=== PATIENT | female | born 1970 | race Caucasian/White ===

== ENCOUNTER 2021-12-24 08:57 | Outpatient (RCR) | payer OTHER, SELFPAY ==
--- OUTSIDE RECORDS SUMMARY | 2021-12-18 09:27 | XMS_ITS | Continuity of Care Document ---
:1970 Author Care Team Providers Name Role Phone SEEN Primary Care Physician Unavailable MD Sammi Attending Physician Unavailable Chief Complaint and Reason for Visit Chief Complaint BILATERAL MASTECTOMY 06/04/21 SHIMA Allergies, Adverse Reactions, Alerts No known allergies Social History Smoking Status Status Start Date End Date Date of Observat ion Never smoked tobacco June 172020 (finding) 3:47pm Observation Status Observation Response Date of Response Health care directive on file May 272020 11:06am History provided by Patient June 03, 2021 8 :37am Where do you live? Own home/apt June 03, 2021 8 :37am With whom do you live? Adult children June 03 8:37am Additional Data Assigned Sex Female Problems Active Problems Medical Problem Onset Date Status Menorrhagia with regular cycle Active Breast cancer 2020 Active Hx of vein stripping Active S/P tubal ligation Active S/P bilateral mastectomy Active Medications Medication Status Dose Units Route Directions Qty Days Start End Ins tructions Date Date Acetaminophen Active 2 TAB PO Every 6 100 /Aspirin/Caff Hours as eine needed (Excedrin Migraine 250-250-65 Mg) 1 Tab TAB Anastrozole Active 1 MG PO Daily August to be s tarted (Arimidex) 1 1st, 2 weeks after Mg TAB 2021 zoladex shot. 3:03pm Calcium Active 1 TAB PO Twice Daily August Carbonate-Vit With Meals , 2021 (Calcium + D3 3:03pm 600-200 Mg-Unit) 1 Tab TAB Magnesium Active 800 MG PO Daily October 3:30pm Melatonin Active 10 MG PO Bedtime as 100 needed Multiple Active 1 EA PO Daily Vitamin (Multi-Vitami n) TAB Naproxen Active 220 MG OR as needed Sodium (Aleve) 220 Mg CAP Oxybutynin Active 5 MG PO Twice A Day 60 23 November Chloride 4th, (Oxybutynin 2021 Chloride Er) 3:30pm 5 Mg TABCR Abemaciclib Discontin 150 MG PO Twice A Day 60 23 September Apri l (Verzenio) ued 1st, 6th, 150 Mg TAB 2021 2021 3:03pm 2:48pm Albuterol Discontin 2 PUFF INH Every 4 1 Novembe September Sulfate ued Hours as r 4th, 10th, (Proair Hfa) needed 2014 2017 90 Mcg/Puff 11:15am 3:31pm INH Albuterol Discontin 2.5 MG NEB Once 1 Novembe Novemb Sulfate ued r 3rd, er (Albuterol 2014 08, Neb) 2.5 Mg/3 4:12pm 2015 Ml NEB 4:26pm Aspirin Discontin 81 MG PO 2-3 Times Septem ued Daily viola 2009 2:45pm Azithromycin Discontin 250-5 MG PO As Directed 6 Novembe A pril 500 MG ON DAY (Zithromax ued 00 r 3rd, 3rd, 1 THEN 2 50 MG Z-Dereck) 250 Mg 2014 2017 DAILY X 4 TAB 4:12pm 2:31pm MORE DAYS Azithromycin Discontin 500 MG PO Daily October (Zithromax) ued 14, , 500 Mg TAB 2007 2008 3:29pm 3:10pm Covid-19 Discontin 100 MCG IM Once June (Sars-Cov-2) ued 18, y Mrna Vir 2021 18, (Moderna 2:48pm 2021 Covid-19 2:50pm Vaccine) 100 Mcg/0.5 Ml INJ Diphenhydrami Discontin 2 TBS PO Bedtime as October ne-Phenylephr ued needed , ine- (Cold & 2012 Flu Intense 1:55pm Streng) Intense TAB Diphenhydrami Discontin 2 TAB PO Daily as October AFTERNOON ne-Phenylephr ued needed 29, ine- (Cold & 2011 Flu Intense 1:55pm Streng) Intense TAB Guaifenesin/C Discontin 5 ML PO Every 6 120 Novembe Apri l odeine ued Hours r 3rd, 3rd, Phosphate 2014 2017 (Guaifenesin- 4:12pm 2:31pm Codeine) 100 Mg/10 Mg/5 Ml SOLN Guaifenesin/C Discontin 1 - 2 TSP PO Q4h Prn 120 October odeine ued 14, 11th, Phosphate 2007 2008 (Guaifenesin- 3:28pm 3:10pm Codeine) 100 Mg/10 Mg/5 Ml SOLN Loratadine Discontin 10 MG PO Daily 30 Decemb (Claritin) 10 ued er Mg TAB 2020 9:29am Lorazepam Discontin 0.5-1 MG PO Every 4 November Decemb PRN ued Hours as 1st, er Nausea/vomi ti needed for 2020, ng Nausea/Vomi 3:33pm 2020 ting 9:29am Magnesium Discontin 800 MG PO Daily 100 May Oxide ued 2021 3:30pm Magnesium Discontin 400 MG PO Daily 100 Septemb Octobe Oxide ued er r 6th, 2020 10:09a 11:04am m Magnesium Discontin 400 MG PO Daily 100 Septem Oxide ued viola 2020 8:06am Melatonin Discontin 10 MG PO Bedtime as 100 Decemb ued needed er 2020 10:07a m [place]-3 Fatty Discontin 1000 MG OR Daily Dayanara Acids ([place] ued , ) 1,000 Mg 2020 CAP 2:55pm Oxycodone Hcl Discontin 5-10 MG PO Every 4 30 Decembe Dece mb ued Hours as r 10th, er needed 2020, 6:02pm 2020 2:00pm Oxycodone Hcl Discontin 5-10 MG PO Every 4 20 Decembe Dece mb ued Hours as r 10th, er needed 2020, 10:31am 2020 9:29am Phenylephrine Discontin 20 ML PO Daily as October -Acetaminophe ued needed , n-Gu (Mucinex 2011 Fast-Max Cold 1:55pm & S) Sinus LIQ Prochlorperaz Discontin 10 MG PO Every 8-12 November emb PRN ine Maleate ued Hours as 1st, er Nause a/vomiti needed for 2020, ng Nausea/Vomi 3:33pm 2020 ting 9:29am Sennosides Discontin 8.6 MG PO Daily 100 Decembe Decemb (Senna) 8.6 ued r 10th, er Mg CAP 2020, 10:30am 2020 2:00pm Tamoxifen Discontin 20 MG PO Daily 30 Decemb Citrate ued er 2020 10:31a m Tamoxifen Discontin 20 MG PO Daily March Decemb Thong e Citrate ued , er 05/06/2021 t o 2020 11, 05/26/2021 10:31am 2020 2:53pm Immunizations Immunization Event Date Not Given Dose Ict Account Manager Lot Vac cine Reason Number Number Informatio n Statement (VIS) Deta il COVID-19 Moderna June 27 [id number] Tetanus/Diptheri October 10, a 1996 Tdap July 28 (adolescent/adul 2006 t) Tdap July 29 (adolescent/adul 2006 t) Medical Equipment Device Date Implanted Date Explanted Device Details PowerPort M.R.I. December 09, 2020 BRIAN: [id number] Implantable Port Issuing Agency: [facility] Device Id: [id number] Expiration Date: 2022-03-26 Lot Number: [id number] PowerPort M.R.I. December 09, 2020 June 04, 2021 BRIAN: [id number] Implantable Port Issuing Agency: [facility] Device Id: [id number] Expiration Date: 2022-03-26 Lot Number: [id number] 1982 Relevant Diagnostic Tests and/or Laboratory Data Laboratory Results Test Date/Time Result Interpretation Reference Result Perfo rming Range Comment Site Creatinine November 25, 0.7 0.5-1.5 [facility] 2021 2:41pm [address] [facility] [address] Advance Directives Advance Directive Response Recorded Date/Time Does Pt have Health Care N - Given today May 05, 12:26pm Directive? Has patient completed a Yes June 17 3:47pm Health Care Directive? Insurance Providers Guarantor Brittny Jensen Address [address] [place] [id number] Contact Info. Home Phone: Payer Policy Id Coverage Id Subscriber's Subscriber Id Effective E xpiration Name Date Date [facility] [id number] Brittny Jensen [id number] 2020 Choice Encounters Encounter Location(s) Arrival/Admit Date Discharge/Depart Date Provider(s) Registered [place] December 03, 2021 Sandy Chang [facility] 2:59pm Registered [place] November 26, 2021 Britt Chapa [facility] 7:04am Functional Status Observation Response Date Recorded Functional Status Independent June 05, 2021 12:44pm Mental Status Observation Response Date Recorded Cognitive Status Alert June 03, 2021 8 :29am Oriented June 03, 2021 8 :29am Plan of Treatment Future Tests Future scheduled test information is unavailable Pending Tests Pending diagnostic test information is unavailable Future Visits Future appointment information is unavailable Referrals to Other Providers Referral information is unavailable Future Procedures Future procedure information is unavailable Future Medications Future medication information is unavailable Patient Instructions Oxycodone, Rapid Release (By mouth) Senna (By mouth) (Senna, Senna-lax) Mastectomy (DC) Dexamethasone (By injection) (Cortastat, Cortastat 10, Dexasone... Pegfilgrastim (By injection) Palonosetron (By injection) (Aloxi) Fosaprepitant (By injection) (Emend)
--- OUTSIDE RECORDS SUMMARY | 2021-12-18 10:16 | XMS_ITS | Continuity of Care Document ---
[...] Decemb ued needed er 2020 10:07a m [place]-3 Fatty Discontin 1000 MG OR Daily Dayanara Acids ([place] ued , ) 1,000 Mg 2020 CAP [...] Immunizations Immunization Event Date Not Given Dose Pharmacogeneticist Lot Vac cine Reason Number Number Informatio n Statement (VIS) Deta il COVID-19 Moderna June 27 MODERNA [id number] 2021 Tetanus/Diptheri October 10, a 1996 Tdap July 28 (adolescent/adul 2006 t) Tdap July 29 (adolescent/adul 2006 t) Medical Equipment Device Date Implanted Date Explanted Device Details PowerPort M.R.I. December 09, 2020 BRIAN: [id number] Implantable Port Issuing Agency: [facility] Device Id: [id number] Expiration Date: 2022-03-26 Lot Number: [id number] 1982 PowerPort M.R.I. December 09, 2020 June 04, 2021 BRIAN: [id number] Implantable Port Issuing Agency: [facility] Device Id: [id number] Expiration Date: 2022-03-26 Lot Number: [id number] 1982 Relevant Diagnostic Tests and/or Laboratory Data Laboratory Results Test Date/Time Result Interpretation Reference Result Perfo rming Range Comment Site Creatinine November 25, 0.7 0.5-1.5 [facility] 2021 2:41pm [address] [facility] [address] Advance Directives Advance Directive Response Recorded Date/Time Does Pt have Health Care N - Given today May 05, 12:26pm Directive? Has patient completed a Yes June 17 3:47pm Health Care Directive? Insurance Providers Guarantor Brittny Jensen Address [address] [place] [id number] Contact Info. Home Phone: Payer Policy Id Coverage Id Subscriber's Subscriber Id Effective E xpiration Name Date Date [facility] [id number] Brittny Jensen [id number] 2020 Choice Encounters Encounter Location(s) Arrival/Admit Date Discharge/Depart Date Provider(s) Registered [place] December 03, 2021 Sandy Chang [facility] 2:59pm Registered [place] November 26, 2021 Britt Chapa [facility] 7:04am Functional Status Observation Response Date Recorded [...]
[2021-12-24 09:29] VITALS: BP 126/84; PULSE 60; RESP 14; TEMP 36.1; O2SAT 99
[2021-12-24] MEDS: GOSERELIN ACETATE 3.6 MG IMPLANT SUBCUT (09:38)
[2021-12-24 09:53] LABS: Creatinine* 0.7 mg/dL (0.5-1.5); Est. Creatinine Clearance* 85.56; Estimated Glomerular Filt Rate 104.65
== END 2021-12-24 23:59 | disposition home or self-care (01) ==
LOC: CCIC 08:57
PROVIDERS: Visit Provider Internal Medicine Hematology & Oncology
DX: C50.912 Malignant neoplasm of unspecified site of left female breast (principal); Z17.0 Estrogen receptor positive status [ER+]
CPT/HCPCS: 36415; 82565; J9202

== ENCOUNTER 2022-01-21 14:30 | Outpatient (RCR) | payer OTHER, SELFPAY ==
--- NOTE | 2022-01-18 15:12 | ONC.NURNOTE ---
Authorization: User: Ada Morin Date: 08/26/21 08:35 Type: Eligibility Determination Note... Request received from [facility] for prior authorization of Goserelin J9202. Patient carries [employer] as primary insurance. Per Negin at [facility] no prior authorization is required for Goserelin. Services are based on medical necessity. Call Ref #[id number] User: Ada Morin Date: 11/19/21 14:09 Type: Eligibility Determination Note... Request received from [facility] for prior authorization of Zoledronic Acid J3489. Patient carries [employer] as primary insurance. Santos Sawyer at [facility] no prior authorization is required for Zoledronic Acid. Call Ref #[id number]
[2022-01-20 15:25] LABS: Creatinine* 0.9 mg/dL (0.5-1.5); Estimated Glomerular Filt Rate 77 ml/min
[2022-01-21 14:55] VITALS: BP 131/71; PULSE 68; RESP 16; TEMP 36.4; O2SAT 98
[2022-01-21] MEDS: GOSERELIN ACETATE 3.6 MG IMPLANT SUBCUT (15:08)
== END 2022-01-24 23:59 | disposition home or self-care (01) ==
LOC: CCIC 14:30
PROVIDERS: Visit Provider Internal Medicine Hematology & Oncology
DX: C50.912 Malignant neoplasm of unspecified site of left female breast (principal); Z17.0 Estrogen receptor positive status [ER+]; Z79.811 Long term (current) use of aromatase inhibitors
CPT/HCPCS: 36415; 82565; 96401; 99212; 99213; 99214; J9202

== ENCOUNTER 2022-02-05 09:25 | Outpatient (RCR) | payer OTHER, SELFPAY | END 2023-01-12 11:05 | disposition home or self-care (01) | PROVIDERS: Visit Provider Surgery | DX: I89.0 Lymphedema, not elsewhere classified (principal); Z51.89 Encounter for other specified aftercare | CPT/HCPCS: 97530 ==

== ENCOUNTER 2022-08-12 15:00 | Outpatient (RCR) | payer OTHER, SELFPAY ==
[2022-02-18 14:13] VITALS: BP 117/79; PULSE 84; RESP 16; TEMP 36.4; O2SAT 96
[2022-02-18] MEDS: GOSERELIN ACETATE 3.6 MG IMPLANT SUBCUT (14:30)
[2022-03-18 14:38] VITALS: BP 105/74; PULSE 79; RESP 16; TEMP 36.5; O2SAT 96
[2022-03-18] MEDS: GOSERELIN ACETATE 3.6 MG IMPLANT SUBCUT (15:09)
[2022-04-15 09:00] VITALS: BP 126/74; PULSE 74; RESP 16; TEMP 36.1; O2SAT 97
[2022-04-15] MEDS: GOSERELIN ACETATE 3.6 MG IMPLANT SUBCUT (09:40)
[2022-05-13] MEDS: GOSERELIN ACETATE 3.6 MG IMPLANT SUBCUT (14:56)
--- NOTE | 2022-05-28 13:47 | ONC.NURNOTE ---
Addendum entered by Ghazala Morales RN 07/05/22 10:59: Pt to see Dr. Pavon 07/26/22 @ 1000; confirmed with Rhonda at Dr. Pavon's office. Original Note: At the request of the patient, a referral was faxed to Dr. Pavon, for discussion of removal of excess skin at the site of her mastectomy. Patient aware that they will call her to schedule.
[2022-06-10 14:48] VITALS: BP 118/81; PULSE 75; RESP 16; TEMP 35.9; O2SAT 97
[2022-06-10 14:57] LABS: Creatinine* 0.9 mg/dL (0.5-1.5); Estimated Glomerular Filt Rate 77 ml/min
[2022-06-10 14:58] LABS: Calcium* 10.1 mg/dL (8.4-10.6)
[2022-06-10] MEDS: GOSERELIN ACETATE 3.6 MG IMPLANT SUBCUT (15:19)
[2022-06-10] MEDS: 0.9 % SODIUM CHLORIDE 250 ml IV (15:24)
[2022-06-10] MEDS: ZOLEDRONIC ACID 4 MG in 0.9 % SODIUM CHLORIDE 100 ml 100 ML 420 MG IVPB (15:24)
[2022-07-15 14:42] VITALS: BP 122/78; PULSE 71; RESP 16; TEMP 35.9; O2SAT 98
[2022-07-15] MEDS: GOSERELIN ACETATE 3.6 MG IMPLANT SUBCUT (14:52)
[2022-08-12 14:36] VITALS: BP 116/79; PULSE 94; RESP 16; TEMP 36.1; O2SAT 99
[2022-08-12] MEDS: GOSERELIN ACETATE 3.6 MG IMPLANT SUBCUT (15:16)
--- NOTE | 2022-08-12 15:46 | ONC.NURNOTE ---
Accompanied pt to appt with Twyla Bedolla CNP. Cont monthly Zoladex; 3 mo f/u sched 11/04/[address] Chpaa.
== END 2022-08-17 23:59 | disposition home or self-care (01) ==
LOC: CCIC 15:00
PROVIDERS: Internal Medicine Hematology & Oncology; Visit Provider Nurse Practitioner Family
DX: C50.912 Malignant neoplasm of unspecified site of left female breast (principal); Z17.0 Estrogen receptor positive status [ER+]; Z79.811 Long term (current) use of aromatase inhibitors; M81.0 Age-related osteoporosis without current pathological fracture
CPT/HCPCS: 36415; 82310; 82565; 96374; 96401; 99212; 99214; J3489; J7050; J9202

== ENCOUNTER 2022-11-16 13:45 | Outpatient (RCR) | payer OTHER, SELFPAY | END 2023-03-16 23:59 | disposition home or self-care (01) | PROVIDERS: PCP Registered Nurse; Visit Provider Registered Nurse | DX: H81.12 Benign paroxysmal vertigo, left ear (principal); I89.0 Lymphedema, not elsewhere classified; Z51.89 Encounter for other specified aftercare | CPT/HCPCS: 95992; 97162; 97535 ==

== ENCOUNTER 2023-02-24 14:30 | Outpatient (RCR) | payer OTHER, SELFPAY ==
--- NOTE | 2022-09-02 14:35 | URNOTE ---
Received request for prior Auth for Zoladex (J9202). Per Loi on behalf of [employer], prior authorization is not required.
[2022-09-09 14:52] VITALS: BP 125/86; PULSE 63; RESP 16; TEMP 36.4; O2SAT 99
[2022-09-09 14:57] VITALS: BP 120/80; BP 129/72
[2022-09-09] MEDS: GOSERELIN ACETATE 3.6 MG IMPLANT SUBCUT (15:04)
[2022-10-07 14:44] VITALS: BP 128/79; PULSE 73; RESP 16; TEMP 36.2; O2SAT 96
[2022-10-07] MEDS: GOSERELIN ACETATE 3.6 MG IMPLANT SUBCUT (14:47)
[2022-11-04] MEDS: GOSERELIN ACETATE 3.6 MG IMPLANT SUBCUT (15:23)
--- NOTE | 2022-11-30 13:13 | URNOTE ---
Received request for prior auth for Zoledronic Acid (J3489). Per Luis Antonio on behalf of [employer], prior auth is not required.
--- NOTE | 2022-11-30 14:52 | ONC.NURNOTE ---
Patient requested refill on both anastrozole and her calcium with vitamin D. These were filled on 11/25/2022 and 11/30/2022. Through expanse error these were transmitted to wrong pharmacy. Entry Level Lab Technician called [facility] and they will request these prescriptions be sent to them from [facility]. Needing dental clearance, as hard copy is missing. Entry Level Lab Technician reached out to [facility] at [phone] and they did not have this copy any longer, but will fill out a new one. Dental clearance form was faxed to [phone].
[2022-12-02 14:59] VITALS: BP 119/75; PULSE 89; RESP 16; TEMP 36.3; O2SAT 96
[2022-12-02] MEDS: GOSERELIN ACETATE 3.6 MG IMPLANT SUBCUT (15:06)
[2022-12-02 15:23] LABS: Creatinine* 0.7 mg/dL (0.5-1.5); Estimated Glomerular Filt Rate 104 ml/min
[2022-12-02 15:24] LABS: Calcium* 10.4 mg/dL (8.4-10.6)
[2022-12-02] MEDS: ZOLEDRONIC ACID 4 MG in 0.9 % SODIUM CHLORIDE 100 ml 100 ML 420 MG IVPB (15:45)
[2022-12-30 08:03] VITALS: BP 113/78; PULSE 64; RESP 16; TEMP 35.7; O2SAT 97
[2022-12-30] MEDS: GOSERELIN ACETATE 3.6 MG IMPLANT SUBCUT (08:17)
[2023-01-27] MEDS: GOSERELIN ACETATE 3.6 MG IMPLANT SUBCUT (14:54)
[2023-01-27 14:58] VITALS: BP 133/81; PULSE 80; RESP 16; TEMP 36.4; O2SAT 95
[2023-02-24] MEDS: GOSERELIN ACETATE 3.6 MG IMPLANT SUBCUT (15:26)
== END 2023-03-08 23:59 | disposition home or self-care (01) ==
LOC: CCIC 14:30
PROVIDERS: Internal Medicine Hematology & Oncology; Visit Provider Physician Assistant
DX: C50.912 Malignant neoplasm of unspecified site of left female breast (principal); Z17.0 Estrogen receptor positive status [ER+]; Z90.13 Acquired absence of bilateral breasts and nipples; M85.80 Other specified disorders of bone density and structure, unspecified site; Z79.811 Long term (current) use of aromatase inhibitors
CPT/HCPCS: 36415; 82310; 82565; 96374; 96401; 99212; 99214; 99215; J3489; J9202

== ENCOUNTER 2023-07-22 14:30 | Outpatient (RCR) | payer BC, OTHER, SELFPAY | END 2023-11-19 23:59 | disposition home or self-care (01) | PROVIDERS: Visit Provider Plastic Surgery | DX: Z98.890 Other specified postprocedural states (principal); Z51.89 Encounter for other specified aftercare | CPT/HCPCS: 97110; 97140; 97161; 97162 ==

== ENCOUNTER 2023-09-08 14:30 | Outpatient (RCR) | payer BC, OTHER, SELFPAY ==
[2023-03-24 14:39] VITALS: BP 120/75; PULSE 72; RESP 16; TEMP 35.8; O2SAT 97
[2023-03-24] MEDS: GOSERELIN ACETATE 3.6 MG IMPLANT SUBCUT (14:53)
--- NOTE | 2023-04-04 12:47 | ONC.NURNOTE ---
Refill request for Calcium carb faxed to [facility] pharmacy.
[2023-04-21 14:46] VITALS: BP 121/78; PULSE 59; RESP 16; TEMP 36.3; O2SAT 94
[2023-04-21] MEDS: GOSERELIN ACETATE 3.6 MG IMPLANT SUBCUT (14:49)
[2023-05-20 09:14] VITALS: BP 119/85; PULSE 68; RESP 16; TEMP 36.2; O2SAT 93
[2023-05-20] MEDS: GOSERELIN ACETATE 3.6 MG IMPLANT SUBCUT (09:39)
[2023-06-16 14:55] LABS: Calcium* 9.8 mg/dL (8.4-10.6); Creatinine* 0.8 mg/dL (0.5-1.5); Est. Creatinine Clearance* 73.18; Estimated Glomerular Filt Rate 88 ml/min
[2023-06-16] MEDS: ZOLEDRONIC ACID 4 MG in 0.9 % SODIUM CHLORIDE 100 ml 100 ML 420 MG IVPB (15:15)
[2023-06-16] MEDS: GOSERELIN ACETATE 3.6 MG IMPLANT SUBCUT (15:16)
--- NOTE | 2023-07-08 12:37 | URNOTE ---
Received request for prior authorization for Goserelin Acetate (Zoladex) (J9202). Per [facility] prior authorization is not required, Ref#[id number], date range 07/13/2023 to 07/13/2024.
[2023-07-14 14:41] VITALS: BP 127/80; PULSE 73; RESP 16; TEMP 35.7; O2SAT 98
[2023-07-14] MEDS: GOSERELIN ACETATE 3.6 MG IMPLANT SUBCUT (16:45)
[2023-08-11 14:50] VITALS: BP 114/75; PULSE 67; RESP 16; TEMP 36.4; O2SAT 94
[2023-08-11] MEDS: GOSERELIN ACETATE 3.6 MG IMPLANT SUBCUT (15:02)
[2023-09-08 14:30] VITALS: BP 134/91; PULSE 70; RESP 18; TEMP 36.6; O2SAT 97
[2023-09-08] MEDS: GOSERELIN ACETATE 3.6 MG IMPLANT SUBCUT (14:47)
--- NOTE | 2023-09-19 15:56 | ONC.NURNOTE ---
Dexa scan reviewed by Dunia Kwon PA-C. Per Dunia Kwon PA-C no change in plan of care. Pt called with results.
== END 2023-09-20 23:59 | disposition home or self-care (01) ==
LOC: CCIC 14:30
PROVIDERS: Visit Provider Physician Assistant
DX: C50.912 Malignant neoplasm of unspecified site of left female breast (principal); M85.80 Other specified disorders of bone density and structure, unspecified site; Z17.0 Estrogen receptor positive status [ER+]
CPT/HCPCS: 36415; 82310; 82565; 96374; 96401; 99212; 99214; J3489; J9202

== ENCOUNTER 2023-09-14 14:25 | Outpatient (CLI) | payer BC, SELFPAY ==
--- NOTE | 2023-09-14 14:30 | XR_ITS ---
Patient: BRITTNY DEMARCO Facility:?[facility] Patient ID:?[id number] Site Patient ID:?[id number]. Site :?1970 Study:?DEXA-Bone Density SPINE/BOTH HIPS-09/14/2023 2:55:01 PM Ordering Physician:FRANDY Final Report: DXA BONE MINERAL DENSITY STUDY Reason for exam: Monitor while on prophylactic aromatase inhibitor. Current height (in): 66. Weight (lb): 205. Menopause age: 50. Ethnicity: White. 1. Have you had a previous hip or vertebral fracture? No. 2. Have you had any fractures during your adult life which did not result from significant trauma (e.g., auto accident)? No. 3. Did either of your parents have a hip fracture? Yes. 4. Do you smoke? No. 5. Have you ever taken Glucocorticoids? No. 6. Do you have rheumatoid arthritis? No. 7. Do you have secondary osteoporosis? No. 8. Do you drink 3 or more alcoholic drinks per day? No. 9. Are you being treated for osteoporosis? No. 10. Have you ever taken any of the following medications: Actonel, Evista, Fosamax, Miacalcin, Reclast, Boniva, Forteo, HRT (i.e., estrogen/hormone therapy), Protelos, Prolia, Vitamin D, Calcium, other ? please specify. ANSWER: Yes, vitamin D, calcium, and anastrozole. 11. Do you have any of the following medical conditions: Anorexia or bulimia, asthma or emphysema, end stage renal disease, hyperparathyroidism, any seizure disorders, cancer, inflammatory bowel diseases, hysterectomy, other ? please specify. ANSWER: Yes, breast cancer. 12. What was your maximum height (inches)? 66. 13. Do you perform weight bearing exercise regularly? No. 14. Do you regularly consume dairy products? Yes. 15. Do you drink caffeinated beverages? Yes. If female: 16. At what age did your period start? 13. 17. Are you premenopausal? No. 18. How many full-term pregnancies have you had? 2. 19. Have you ever missed your period for more than 6 months in a row (not including or menopause)? No. TECHNIQUE: Bone mineral density study was performed using the Horizon Wi. FINDINGS: The results of the study expressed as bone mineral density (BMD) are as follows: Lumbar spine L1 to L4: BMD: 1.129 g/cm2. T-score: 0.7. Z-score: 1.7 Neck Left: BMD: 0.701 g/cm2. T-score: -1.3. Z-score: -0.4 Right: BMD: 0.805 g/cm2. T-score: -0.4. Z-score: 0.6 Total Left: BMD: 1.034 g/cm2. T-score: 0.8. Z-score: 1.4 Right: BMD: 1.058 g/cm2. T-score: 0.9. Z-score: 1.6 IMPRESSION: Osteopenia. *Comparison exams done prior to 11/2019 were performed on different unit, [employer]. COMPARISON: Compared with scan of 09/03/2021, the bone mineral density has increased by 4.8 percent at the spine and increased by 9.3 percent at the hip. FRAX 10-year Fracture Risk Major Osteoporotic Fracture: 11% Hip Fracture: 0.3% Reported Risk Factors: [place] () Neck BMD=0.701, BMI=33.1, parental fracture Juan David May M.D. Diagnostic Radiologist [email or web address] [place]/geo D& Transcribed: 1:13 p.mJace guardado/Dictated by: Juan David May MD @ 09/15/2023 9:13:00 AM Signed by:?Juan David May MD @09/15/2023 1:42:41 PM (Electronic Signature)
== END 2023-09-14 14:26 | disposition home or self-care (01) ==
LOC: RAD 14:26
PROVIDERS: Visit Provider Physician Assistant
DX: M85.80 Other specified disorders of bone density and structure, unspecified site (principal); M85.88 Other specified disorders of bone density and structure, other site; Z79.811 Long term (current) use of aromatase inhibitors
CPT/HCPCS: 77080

== ENCOUNTER 2023-11-18 09:02 | Outpatient (CLI) | payer BC, SELFPAY ==
--- NOTE | 2023-11-18 09:15 | CRLHL7_ITS ---
For Patients: As a result of the Century Cures Act, medical imaging exams and procedure reports are released immediately into your electronic medical record. You may view this report before your referring provider. If you have questions, please contact your health care provider. Indication: PALPABLE CHEST LUMP Technique: Grayscale and color Doppler ultrasound of the bilateral chest wall performed anteriorly. Comparison: None Findings: Circumscribed solid and cystic lesions are present within the subcutaneous tissues postmastectomy and fat injection procedures. The largest measures 2.0 x 0.9 x 5.1 cm on the right and 2.1 x 0.9 x 6.7 cm on the left. No suspicious findings. No abnormal vascularity. Impression: Solid and cystic lesions within the subcutaneous tissues of the anterior chest wall bilaterally related to percutaneous fat injection procedures. No suspicious findings. Dictated by Juan David May MD @ 11/18/2023 1:29:17 PM (Electronically Signed)
== END 2023-11-18 09:03 | disposition home or self-care (01) ==
LOC: US 09:03
PROVIDERS: Visit Provider Plastic Surgery
DX: R22.2 Localized swelling, mass and lump, trunk (principal); Z85.3 Personal history of malignant neoplasm of breast
CPT/HCPCS: 76604

== ENCOUNTER 2024-03-22 14:30 | Outpatient (RCR) | payer BC, SELFPAY ==
[2023-10-06 14:50] VITALS: BP 120/78; PULSE 72; RESP 16; TEMP 36.2; O2SAT 99
[2023-10-06] MEDS: GOSERELIN ACETATE 3.6 MG IMPLANT SUBCUT (14:56)
[2023-11-03 14:48] VITALS: BP 116/80; PULSE 74; RESP 16; TEMP 36.1; O2SAT 97
[2023-11-03] MEDS: GOSERELIN ACETATE 3.6 MG IMPLANT SUBCUT (15:02)
[2023-12-01] MEDS: GOSERELIN ACETATE 3.6 MG IMPLANT SUBCUT (15:12)
--- NOTE | 2023-12-23 12:24 | URNOTE ---
Received request for prior authorization for Zoledronic Acid (J3489). Per [facility], prior authorization is not required Ref# [id number].
[2023-12-30 08:54] VITALS: BP 117/74; PULSE 64; RESP 18; TEMP 35.7; O2SAT 97
[2023-12-30] MEDS: GOSERELIN ACETATE 3.6 MG IMPLANT SUBCUT (09:22)
[2023-12-30 09:40] LABS: Calcium* 10.1 mg/dL (8.4-10.6); Creatinine* 0.7 mg/dL (0.5-1.5); Estimated Glomerular Filt Rate 103 ml/min
[2023-12-30] MEDS: ZOLEDRONIC ACID 4 MG in 0.9 % SODIUM CHLORIDE 100 ml 100 ML 420 MG IVPB (09:57)
[2023-12-30] MEDS: 0.9 % SODIUM CHLORIDE 250 ml IV (10:00)
[2023-12-30] MEDS: SODIUM CHLORIDE 0.9 % (FLUSH) 10 ML SYRINGE IVF (10:00)
[2024-01-26] MEDS: GOSERELIN ACETATE 3.6 MG IMPLANT SUBCUT (15:02)
[2024-02-23 14:33] VITALS: BP 131/83; PULSE 70; RESP 16; TEMP 36.3; O2SAT 100
[2024-02-23] MEDS: GOSERELIN ACETATE 3.6 MG IMPLANT SUBCUT (15:01)
[2024-03-22 14:35] VITALS: BP 132/80; PULSE 67; RESP 16; TEMP 36.4; O2SAT 98
[2024-03-22] MEDS: GOSERELIN ACETATE 3.6 MG IMPLANT SUBCUT (14:42)
== END 2024-04-03 23:59 | disposition home or self-care (01) ==
LOC: CCIC 14:30
PROVIDERS: Visit Provider Physician Assistant
DX: C50.912 Malignant neoplasm of unspecified site of left female breast (principal); Z17.0 Estrogen receptor positive status [ER+]; Z79.811 Long term (current) use of aromatase inhibitors; M85.80 Other specified disorders of bone density and structure, unspecified site
CPT/HCPCS: 36415; 82310; 82565; 96374; 96401; 99214; G0463; J3489; J7050; J9202

== ENCOUNTER 2024-06-11 09:04 | Outpatient (CLI) | payer BC, SELFPAY ==
--- NOTE | 2024-06-11 09:15 | CRLHL7_ITS ---
For Patients: As a result of the Century Cures Act, medical imaging exams and procedure reports are released immediately into your electronic medical record. You may view this report before your referring provider. If you have questions, please contact your health care provider. Indication: F/U post mastectomy lumps bilateral Technique: Grayscale and color Doppler ultrasound of the chest wall performed bilaterally. Comparison: 11/18/2023 Findings: Lobular circumscribed mostly cystic structure within the right medial chest wall is present measuring 3.9 x 1.7 x 1.4 cm. Previously, this measured 5.1 x 0.9 x 2.0 cm. Heterogeneous solid and cystic structure within the left chest wall is present at the medial aspect measuring 4.2 x 0.9 x 1.3 cm, previously measuring 6.7 x 0.9 x 2.1 cm. No abnormal vascularity. No shadowing lesion. Impression: Cystic/solid and cystic structures within the medial chest wall bilaterally which are decreased in size compared to the prior study. Dictated by Juan David May MD @ 06/11/2024 11:03:56 AM (Electronically Signed)
== END 2024-06-11 09:05 | disposition home or self-care (01) ==
PROVIDERS: Visit Provider Plastic Surgery
DX: N63.20 Unspecified lump in the left breast, unspecified quadrant (principal); N63.10 Unspecified lump in the right breast, unspecified quadrant; N60.01 Solitary cyst of right breast; N60.02 Solitary cyst of left breast; Z85.3 Personal history of malignant neoplasm of breast
CPT/HCPCS: 76604

== ENCOUNTER 2024-09-25 08:53 | Outpatient (CLI) | payer BC, SELFPAY ==
--- NOTE | 2024-09-25 09:15 | CRLHL7_ITS ---
For Patients: As a result of the Cures Act, medical imaging exams and procedure reports are released immediately into your electronic medical record. You may view this report before your referring provider. If you have questions, please contact your health care provider. Indication: f/u s/p mastectomy chest lumps Technique: Grayscale and color Doppler ultrasound of the chest performed bilaterally. Comparison: 06/11/2024 Findings: Circumscribed collections of fluid within the chest soft tissues remains unchanged. Within the medial right chest soft tissues there is a fluid collection measuring 1.6 x 1.2 x 3.0 cm. No internal vascularity. No shadowing component. Fluid collections in the left breast measure up to 2.0 cm, not significantly changed. Impression: No change compared to the prior study. No suspicious findings. Dictated by Juan David May MD @ 09/25/2024 9:48:10 AM (Electronically Signed)
== END 2024-09-25 08:54 | disposition home or self-care (01) ==
LOC: US 08:54
PROVIDERS: Visit Provider Internal Medicine Hematology & Oncology
DX: C50.912 Malignant neoplasm of unspecified site of left female breast (principal); R22.2 Localized swelling, mass and lump, trunk
CPT/HCPCS: 76604

== ENCOUNTER 2024-10-05 14:30 | Outpatient (RCR) | payer BC, SELFPAY ==
[2024-04-19 14:38] VITALS: BP 126/78; PULSE 72; RESP 18; TEMP 36.3; O2SAT 98
[2024-04-19] MEDS: GOSERELIN ACETATE 3.6 MG IMPLANT SUBCUT (14:59)
[2024-05-17 14:34] VITALS: BP 134/82; PULSE 85; RESP 16; TEMP 36; O2SAT 98
[2024-05-17] MEDS: GOSERELIN ACETATE 3.6 MG IMPLANT SUBCUT (15:03)
[2024-06-13 14:53] VITALS: BP 112/63; PULSE 67; RESP 16; TEMP 35.8; O2SAT 97
[2024-06-13] MEDS: GOSERELIN ACETATE 3.6 MG IMPLANT SUBCUT (15:02)
--- NOTE | 2024-07-06 14:25 | URNOTE ---
Received request for prior authorization for Goserelin Acetate (Zoladex) (J9202). Per [facility] prior authorization is not required, per [facility] web site.
[2024-07-12 14:58] LABS: Creatinine* 0.8 mg/dL (0.5-1.5); Est. Creatinine Clearance* 75.26; Estimated Glomerular Filt Rate 88 ml/min
[2024-07-13 14:39] VITALS: BP 133/75; PULSE 71; RESP 16; TEMP 36.6; O2SAT 99
[2024-07-13] MEDS: ZOLEDRONIC ACID 4 MG in 0.9 % SODIUM CHLORIDE 100 ml 100 ML 400 MG IVPB (15:22)
[2024-07-13] MEDS: GOSERELIN ACETATE 3.6 MG IMPLANT SUBCUT (15:22)
[2024-08-10 14:34] VITALS: BP 116/76; PULSE 73; RESP 16; TEMP 36.3; O2SAT 96
[2024-08-10] MEDS: GOSERELIN ACETATE 3.6 MG IMPLANT SUBCUT (14:51)
[2024-09-07 10:33] VITALS: BP 126/77; PULSE 64; RESP 17; TEMP 36.5; O2SAT 97
[2024-09-07] MEDS: GOSERELIN ACETATE 3.6 MG IMPLANT SUBCUT (10:57)
--- NOTE | 2024-09-20 13:47 | ONC.NURNOTE ---
Patient informed of plan for PET/CT on 10/18. We will call her with results per Dr. Chapa.
[2024-10-05 14:55] VITALS: BP 121/79; PULSE 69; RESP 18; TEMP 36.6; O2SAT 98
[2024-10-05] MEDS: GOSERELIN ACETATE 3.6 MG IMPLANT SUBCUT (15:04)
== END 2024-10-16 23:59 | disposition home or self-care (01) ==
LOC: CCIC 14:30
PROVIDERS: Physician Assistant; Visit Provider Internal Medicine Hematology & Oncology
DX: C50.912 Malignant neoplasm of unspecified site of left female breast (principal); Z17.0 Estrogen receptor positive status [ER+]; M85.80 Other specified disorders of bone density and structure, unspecified site; Z79.811 Long term (current) use of aromatase inhibitors
CPT/HCPCS: 36415; 82310; 82565; 96365; 96401; 96402; 99214; G0463; J3489; J9202

== ENCOUNTER 2024-10-18 15:28 | Outpatient (CLI) | payer BC, SELFPAY ==
--- NOTE | 2024-10-18 16:00 | CRLHL7_ITS ---
For Patients: As a result of the 21st Century Cures Act, medical imaging exams and procedure reports are released immediately into your electronic medical record. You may view this report before your referring provider. If you have questions, please contact your health care provider. EXAM: FDG PET-CT Skull Base to Thighs CLINICAL INFORMATION: 54-year-old woman with history of concern for recurrent breast cancer. Restaging. TECHNIQUE: Radiopharmaceutical: 18F-fluorodeoxyglucose (18F-FDG) Dose: 10.3 MilliCurie. Blood glucose: 84 mg/dL. Image acquisition: At approximately 60 minutes following IV tracer administration via a right antecubital vein, positron emission tomography was performed from the skull base through the mid thigh. Non-contrast low-dose helical CT imaging was performed over the same range without breath-hold for attenuation correction of PET images and anatomic correlation; it is neither sufficient, nor should it be substituted for diagnostic purposes. COMPARISON: FDG PET-CT 09/20/2020. Breast ultrasound images 09/25/2024. FINDINGS: Mediastinal blood pool FDG uptake: SUVMax 3.4 (image 82) Liver background parenchymal FDG uptake: SUVMax 4.2 (image 120) HEAD AND NECK: No abnormal FDG uptake in the imaged head and neck. CHEST: Ports and devices: None. Lungs: No abnormal FDG uptake. Pleura: No abnormal FDG uptake. Thoracic lymph Nodes: No abnormal FDG uptake. Interval resection of a left axillary lymph node that had previously contained a biopsy marker. Mediastinum: Uptake along the lower esophagus is likely inflammatory. Small hiatal hernia. Breasts/Chest Wall: Bilateral mastectomies. New multifocal cutaneous and subcutaneous lesions in the left, midline, and right anterior chest wall most likely representing recurrent malignancy, with examples as below: *New 11.8 x 2.1 cm multilobulated cutaneous mass in the left anterior chest wall SUVMax (301, images 82-103; 202, images 83-104). Subjacent to this lesion are numerous subcentimeter faintly FDG avid subcutaneous masses and nodules, for example a 4.0 x 0.6 cm subcutaneous lesion SUVMax 2.3 (301:100, 202:101), which abuts the lateral margin of the left pectoralis major (image 102). *2.1 x 1.3 Cm subcutaneous nodule in the midline anterior lower chest wall SUVMax 5.8 (301:97, 202:98) *1.4 x 1.2 Cm subcutaneous nodule in right lateral chest wall SUVMax 4.4 (301:103, 202:104). * faintly FDG avid cutaneous thickening in the right anterior chest wall SUVMax 1.8 (image ) *0.9 X 0.8 Cm nodule in the medial right pectoralis major SUVMax 4.0 (image 64) ABDOMEN/PELVIS: Liver/biliary system: New moderate focal uptake in posterior hepatic segment 6 SUVMax 5.2 (301:160, 202:161) without definite CT correlate. Pancreas: No abnormal FDG uptake. Spleen: No abnormal FDG uptake. Adrenal Glands: No abnormal FDG uptake. Kidneys: No abnormal FDG uptake. Bowel: No abnormal FDG uptake. Colonic diverticulosis. Mesentery, Omentum and Peritoneum: No abnormal FDG uptake. Pelvic Organs: No abnormal FDG uptake. Abdominopelvic lymph Nodes: No abnormal FDG uptake. Musculoskeletal: No definite abnormal focal increased FDG uptake in the visualized skeleton. Multilevel degenerative changes in the spine. Degenerative changes in the shoulders. New 1.3 x 0.9 cm subcutaneous nodule in the right ventral lower abdominal/pelvic wall SUVMax 4.2 (image 225). IMPRESSION: Since 09/20/2020: 1. Bilateral mastectomies. 2. New multifocal FDG avid cutaneous and subcutaneous lesions in the left chest wall most likely represents locally recurrent breast malignancy, with a dominant cutaneous lesion measuring 11.8 cm and intensely FDG avid. A mildly FDG avid 4.0 cm subcutaneous left chest wall mass abuts the left pectoralis major lateral margin, raising concern for metastatic involvement. Recommendation correlation with breast MRI. 3. New FDG avid subcutaneous nodules in the midline and right chest wall raise concern for local metastatic disease from the recurrent breast malignancy. 4. A new mildly FDG avid subcentimeter nodule in the medial right pectoralis major raises concern for a site of skeletal muscle metastatic disease. 5. New moderate focal uptake in the right inferior liver at segment 6, without definite CT correlate, raises concern for a site of metastatic disease. Correlate with liver MRI with contrast. 6. New mildly FDG avid 1.3 cm subcutaneous nodule in the right ventral lower abdominal/pelvic wall may be inflammatory. Correlate with any clinical history of recent injection at this site. 7. No evidence of FDG avid justice metastatic disease. Dictated by Shaan Allen MD @ 10/21/2024 3:51:43 PM (Electronically Signed)
== END 2024-10-18 15:29 | disposition home or self-care (01) ==
LOC: RAD 15:29
PROVIDERS: Visit Provider Internal Medicine Hematology & Oncology
DX: C50.812 Malignant neoplasm of overlapping sites of left female breast (principal); N63.10 Unspecified lump in the right breast, unspecified quadrant; M89.9 Disorder of bone, unspecified; K76.9 Liver disease, unspecified
CPT/HCPCS: 78815; A9552

== ENCOUNTER 2024-10-31 15:14 | Outpatient (CLI) | payer BC, SELFPAY ==
--- NOTE | 2024-10-31 15:30 | CRLHL7_ITS ---
For Patients: As a result of the Century Cures Act, medical imaging exams and procedure reports are released immediately into your electronic medical record. You may view this report before your referring provider. If you have questions, please contact your health care provider. INDICATION: Liver lesion seen on recent PET-CT scan. History of breast cancer. COMPARISON: PET-CT scans dated 18 October 2024 and 20 Nov 2020. TECHNIQUE: Abdominal MRI with T1 in- and out of phase, T2, diffusion weighted, and progressively delayed post-contrast images. Intravenous gadolinium administered. FINDINGS: Minimal geographic fatty infiltrative in the liver. A few tiny cysts in the liver. No lesion in the lower portion of segment 6 as seen on the previous PET-CT scan. No other focal abnormalities identified in the visualized portions of the liver, pancreas, and adrenal glands. Minimal nodularity of the spleen. The spleen is otherwise unremarkable. 9 mm cyst in the interpolar region of the right kidney. The kidneys are otherwise unremarkable. No hydronephrosis. No adenopathy. Impression : 1. No suspicious liver lesion identified. Dictated by Marcelino Pruett MD @ 11/01/2024 7:55:19 AM (Electronically Signed)
== END 2024-10-31 15:15 | disposition home or self-care (01) ==
LOC: MRI 15:15
PROVIDERS: Visit Provider Physician Assistant
DX: K76.9 Liver disease, unspecified (principal); C50.912 Malignant neoplasm of unspecified site of left female breast
CPT/HCPCS: 74183; A9575

== ENCOUNTER 2024-11-02 11:02 | Outpatient (CLI) | payer BC, SELFPAY ==
--- NOTE | 2024-11-02 11:15 | CRLHL7_ITS ---
For Patients: As a result of the Century Cures Act, medical imaging exams and procedure reports are released immediately into your electronic medical record. You may view this report before your referring provider. If you have questions, please contact your health care provider. ULTRASOUND-GUIDED BILATERAL CHEST WALL BIOPSIES CLINICAL HISTORY: Breast cancer 2020. Status post bilateral mastectomy with autologous fat injection procedures for augmentation. Stable ultrasound exams without clinical suspicious finding. Recent CT-PET demonstrated areas of uptake within the chest wall, likely related to autologous fat injection procedures. Rule out cancer. COMPARISON STUDIES: CT-PET 10/18/2024, ultrasound chest, 09/25/2024, 06/11/2024, 11/18/2023 TECHNIQUE: Real-time ultrasound with image documentation was used for targeting the bilateral chest lesion. Core biopsy specimens were obtained using an automated gun with a 16-gauge biopsy needle. CONSENT and TIME OUT: The procedure, risks, and alternatives were explained to the patient and a consent was signed. [place] Protocol was followed including pre-procedure verification that relevant information/documentation was available, reviewed and properly matched to the patient; consent accurate and complete; and equipment and supplies available. Time Out was conducted just prior to starting procedure to verify the four required elements: patient identity, correct side/site marked (if applicable), procedure, relevant images/results properly labeled and displayed (if applicable). PROCEDURE: The patient was positioned supine on the ultrasound table. Each biopsy ws done in similar fashion. The chest wall was prepped with ChloraPrep. 8cc of 1% lidocaine was injected for local anesthesia. Core samples were obtained. The specimens were placed in 10% formalin and sent to the pathology department. Pressure was held on the biopsy site until all bleeding subsided. The skin incision was closed with Steri-Strips. An ice pack was positioned over the biopsy site. Post-biopsy instructions were reviewed with the patient, and a written copy was given to her. LATERALITY: Bilateral chest wall LESION: Solid and cystic lesion medial aspect of the left chest wall measures 1.3 x 0.7 x 2.0 cm. Solid and cystic lesion medial aspect of the right chest wall measures 1.6 x 1.2 x 3.0 cm. SUSPICION FOR MALIGNANCY: Low, probable fat necrosis/autologous fat injection NUMBER OF SAMPLES: 5 samples each IMPRESSION: Ultrasound-guided bilateral chest wall biopsies. Dictated by Juan David May MD @ 11/02/2024 1:24:35 PM (Electronically Signed)
== END 2024-11-02 11:03 | disposition home or self-care (01) ==
LOC: US 11:03
PROVIDERS: Visit Provider Internal Medicine Hematology & Oncology
DX: R93.89 Abnormal findings on diagnostic imaging of other specified body structures (principal); Z85.3 Personal history of malignant neoplasm of breast
CPT/HCPCS: 20206; 76942; 88305; A4649

== ENCOUNTER 2025-04-23 14:30 | Outpatient (RCR) | payer BC, SELFPAY ==
[2024-11-02 12:24] VITALS: BP 154/84; PULSE 55; RESP 20; TEMP 36.1; O2SAT 98
[2024-11-02] MEDS: GOSERELIN ACETATE 3.6 MG IMPLANT SUBCUT (12:57)
[2024-11-29] MEDS: GOSERELIN ACETATE 3.6 MG IMPLANT SUBCUT (15:55)
[2024-12-31 14:34] VITALS: BP 143/86; PULSE 77; TEMP 36.4; O2SAT 98
[2024-12-31] MEDS: GOSERELIN ACETATE 3.6 MG IMPLANT SUBCUT (15:06)
[2024-12-31 15:51] LABS: Creatinine* 0.8 mg/dL (0.5-1.5); Est. Creatinine Clearance* 75.26; Estimated Glomerular Filt Rate 88 ml/min
[2024-12-31 15:52] LABS: Calcium* 9.9 mg/dL (8.4-10.6)
[2025-01-08 14:33] VITALS: BP 115/74; PULSE 61; RESP 14; TEMP 36.5; O2SAT 97
[2025-01-08] MEDS: ZOLEDRONIC ACID 4 MG in 0.9 % SODIUM CHLORIDE 100 ml 100 ML 315 MG IVPB (15:06)
[2025-01-28 14:16] VITALS: BP 126/77; PULSE 68; RESP 18; TEMP 36.5; O2SAT 98
[2025-01-28] MEDS: GOSERELIN ACETATE 3.6 MG IMPLANT SUBCUT (14:36)
[2025-02-26 14:32] VITALS: BP 134/74; PULSE 74; RESP 17; TEMP 36.1; O2SAT 98
[2025-02-26] MEDS: GOSERELIN ACETATE 3.6 MG IMPLANT SUBCUT (14:50)
[2025-03-26 14:33] VITALS: BP 119/73; PULSE 74; RESP 16; TEMP 36.3; O2SAT 96
[2025-03-26] MEDS: GOSERELIN ACETATE 3.6 MG IMPLANT SUBCUT (14:46)
[2025-04-23 14:36] VITALS: BP 134/80; PULSE 59; RESP 17; TEMP 36.2; O2SAT 96
[2025-04-23] MEDS: GOSERELIN ACETATE 3.6 MG IMPLANT SUBCUT (14:50)
== END 2025-05-01 23:59 | disposition home or self-care (01) ==
LOC: CCIC 14:30
PROVIDERS: Physician Assistant; Visit Provider Clinical Nurse Specialist
DX: C50.912 Malignant neoplasm of unspecified site of left female breast (principal); Z17.0 Estrogen receptor positive status [ER+]; Z79.811 Long term (current) use of aromatase inhibitors
CPT/HCPCS: 20206; 36415; 76942; 82310; 82565; 88305; 96365; 96402; 99214; G0463; A4649; J3489; J9202

== ENCOUNTER 2025-06-25 10:36 | Emergency (ER) | payer BC, SELFPAY ==
[2025-06-25 10:46] VITALS: BP 126/83; PULSE 85; RESP 16; TEMP 36.2; O2SAT 97; BMI 31.3
--- OUTSIDE RECORDS SUMMARY | 2025-06-25 11:09 | XMS_ITS | CCD ---
Author Name Interface, L1Ceicdct lity Address [address] [place] [address] [address] [address] [facility] Address [address] [address] [address] Support Name Relationship Address Phone Jon Jensen Child Unknown Unavailable Camila Eliot Child Unknown Unavailable Dora Al Other adult Unknown Unavailable Allergies and Adverse Reactions Medication/Group Name Reaction Severity Date No known allergies Reason for Visit RECONSULT 30 MIN Medications Date Name Route Dose Frequency Instructions Start Date End Date Status Fill Status Indication 03/03/2021 Multivitamins Oral Tablet lbwmcc6106/03/2021Melatonin Soxysbzvmc19/30/2023Oxybutynin Kgtxtlbqlw48/07/2021 Prochlorperazine Wivpkvmetvn15/07/2021Naproxen Sodium Wknlidmmkt36/15/2021 Sennosides Lkjwyjpmetj49/10/2021Tamoxifen Wdslyksaghwx06/07/2021spirin Oral cfbxks5907/26/2022alcium Carbonate Cnarzadvrm84/30/2023nastrozole Oralactive 03/03/2021orazepam Nqsnljaipvn28/15/2021Oxycodone Oralstopped Problems Diagnosis Status Date of Diagnosis Resolution Date Encounter for other plastic and reconstructive surgery following medical procedure or healed injury Active MacromastiaActiveBreast cancer, femaleActiveHistory of mastectomy (situation) ActiveDeformity of reconstructed breast (disorder)Active Social History Date Name Value 03/03/2021 Sex Female
--- OUTSIDE RECORDS SUMMARY | 2025-06-25 11:09 | XMS_ITS | Clinical Summary ---
Author Organization [facility] Address [address] [place] [address] Care Team Providers Care Hydraulic Specialist Name Role Phone Health, Family Primary Care Provider Unavailabl e Allergies No known active allergies Medications MedicationSigDispense QuantityRefillsLast FilledStart DateEnd DateStatus multivitamin (MVI) tablet Take 1 tablet by mouth once daily.ctive MISCELLANEOUS MEDICAL SUPPLY (COMPRESSION STOCKINGS) Indications:Venous insufficiencyAs directed. 20-30 mm/Hg calf or thigh high compression stockings Venous insufficiency 4 Packet prn1ctive Social History Tobacco UseTypesPacks/DayYears UsedDateSmoking Tobacco: NeverAlcohol UseStandard Drinks/WeekCommentsNot Asked0 (1 standard drink = 0.6 oz pure alcohol) CommentsUnknownSex and Gender InformationValueDate RecordedSex Assigned at Not on fileLegal GzpZpfric30/14/2013 6:52 AM CSTGender IdentityNot on fileSexual OrientationNot on file Last Filed Vital Signs Vital SignReadingTime TakenCommentsBlood Vfqnwdut432/7403/30/2010 9:33 AM CDT Eyivp182503/30/2010 9:33 AM CDTTemperature--Respiratory Rate--Oxygen Saturation-- Inhaled Oxygen Concentration--Kuxikh82.4 kg (217 lb)03/30/2010 9:33 AM CDTHeight 170.2 cm (5' 7)03/30/2010 9:33 AM CDTBody Mass Index33.9903/30/2010 9:33 AM CDT Plan of Treatment Health MaintenanceDue DateLast DoneCommentsTetanus nnqesym9103/01/1981Depression screening for age 12+1982HIV for age 15-BMI (ht and wt on same day) for age 18+1988Hepatitis C screening for age 18-7903/01/1988Hepatitis B series for 19+ (1 of 3 - 19+ 3-dose series)1989Colonoscopy through age Lipids for age 45-Pneumococcal series for age 50+ (1 of 1 - PCV)2020Zoster (shingles) series for age 50+ (1 of 2)2020 Mammogram for age 40-1Pap test for age 21-10/16/2020, 09/27/2017, 09/27/2017COVID-19 vaccine series ( - 2024-26 season) 2025Influenza Vaccine (#1)2025RSV vaccine for adults or (1 - 1-dose 75+ series)2045 Procedures Procedure NamePriorityDate/TimeAssociated DiagnosisCommentsXR MAMMO BECKY UNI DIAG CIKOAdmrple56/12/2021 3:18 PM CDT Mammographic microcalcification INTERNET PROGRAMMER THIN PREP PAP SCREEN ZIERSGKnkyyta70/22/2021 3:45 PM CDT from Last 3 Months or Most Recently Relevant to Health Maintenance Results * XR MAMMO BECKY UNI DIAG LEFT (11/05/2020 3:18 PM CDT)Anatomical Region LateralityModalityBREASTS, Breast LeftMammographySpecimen (Source)Anatomical Location / LateralityCollection Method / VolumeCollection TimeReceived Time 11/05/2020 4:24 PM CDT Impressions 11/06/2020 4:57 PM CDT 1. LEFT breast mass at 3 o'clock, 6 cm from the nipple and 2 o'clock, 11 cm from the nipple are suspicious. 2. Abnormal LEFT axillary lymph node is suspicious. RECOMMENDATIONS: Ultrasound-guided core needle two-site LEFT breast biopsy and LEFT axillary lymph node biopsy is recommended. Results and recommendations were discussed with the patient at the time of the exam. BI-RADS Category 4: Suspicious Dictated by: Diana Holcomb MD @11/05/2020 4:24:50 PM/jsb Narrative 11/06/2020 4:57 PM CDT PATIENTS: You will also receive a letter with your examination results in an easy to read format. ??If you have questions about your results, please contact your referring provider. LEFT BREAST MAMMOGRAM DIGITAL DIAGNOSTIC WITH TOMOSYNTHESIS 11/05/2020 ?? LEFT BREAST AND LEFT AXILLA ULTRASOUND 11/05/2020 CLINICAL HISTORY: ?? Abnormal LEFT breast calcifications, possibly associated LEFT breast mass. COMPARISON: Additional mammographic views the LEFT breast 10/29/2020, screening mammogram 10/23/2020 and 03/17/2015. TECHNIQUE: Digital LEFT mammogram in 90 degree lateral projections with tomosynthesis. Real-time ultrasound imaging of LEFT breast with imaging documentation. Scanning was performed by both the technologist and the radiologist. BREAST COMPOSITION: There are scattered areas of fibroglandular density. FINDINGS: Mammogram: There is an irregular mass with spiculated margins, measuring approximately 0.8 cm at 3 o'clock, middle depth, approximately 6 cm from the nipple. There are associated fine pleomorphic calcifications in a linear distribution which span approximately 4.5 cm. There is also a possible irregular focal asymmetry at 2 o'clock, posterior depth, approximately 13 cm from the nipple. There are additional scattered smaller groups of calcifications. Ultrasound: Targeted ultrasound was performed of the LEFT breast at 3 o'clock, 6 cm from the nipple. There is an underlying irregular, hypoechoic mass with spiculated margins measuring 0.6 x 0.9 x 0.6 cm. This correlates to the mammographic finding. At 2 o'clock, 11 cm from the nipple there is an irregular, hypoechoic mass with spiculated margins measuring 1.0 x 0.9 x 0.6 cm. Within the LEFT axilla there is an abnormal lymph node with diffuse cortical thickening. This lymph node measures 2.9 x 1.3 x 2.9 cm. The cortex measures 1.2 cm. Authorizing ProviderResult TypeResult StatusDiana Ayoub NPMAMMOFinal Result * INTERNET PROGRAMMER THIN PREP PAP SCREEN IMAGED (10/16/2020 3:45 PM CDT)ComponentValueRef RangeTest MethodAnalysis TimePerformed AtPathologist SignatureCase Report Gynecologic Cytology Report ? Case: [id number] ? Authorizing Provider: ??Diana Ayoub, BELLY DUMP DRIVER ? Collected: ? 10/16/2020 1545 ? Ordering Location: ? [facility] ?Received: ?10/20/2020 0756 ? First Screen: ?Al Aldridge ? Specimen: ?INTERNET PROGRAMMER ThinPrep Vial Screening, Cervical/Vaginal ? 10[facility]28[facility]2020 9:39 [facility] INTERPRETATION/RESULTNEGATIVE FOR INTRAEPITHELIAL LESION OR MALIGNANCY (NIL) (none)10/28/2020 9:39 AM [facility] at 0939 CDTSPECIMEN ADEQUACYSatisfactory for evaluation No endocervical component seen10/28/2020 9:39 AM [facility]- CENTRAL LABORATORYHPV REQUESTHPV if ASCUS10/28/2020 9:39 AM [facility]-CENTRAL LABORATORYDate of LMP 9:39 AM [facility]-CENTRAL LABORATORYLast Pap Date 9:39 AM CDT [facility]-CENTRAL LABORATORYLast Pap Pmlwoi1010/28/2020 9:39 AM CDT [facility]-CENTRAL LABORATORYComment:WNLAdditional Information 10/28/2020 9:39 AM [facility]-CENTRAL LABORATORYComment: Interpreted at [facility] - [address] [place] [address], [place] [address] Automated YondnwHzqqcjqosb74/04/2021 9:39 AM [facility]-CENTRAL LABORATORYComment:Specimen processed successfully by automated online communications specialist device, CirrascalePrep Imaging System, [email or web address]NoteThe pap test is a screening technique, not a diagnostic procedure. It is used primarily to screen for squamous cancers and precursor lesions. Published studies have shown that it is subject to both false negative and false positive results. The pap test should not be used as the sole means to diagnose or exclude pre-malignant and malignant lesions. 10/28/2020 9:39 AM [facility]YSpecimen (Source)Anatomical Location / LateralityCollection Method / VolumeCollection TimeReceived TimeOther (Cervical/Vaginal)10/16/2020 3:45 PM CDT10/20/2020 7:56 AM CDT Narrative Authorizing ProviderResult TypeResult StatusDiana Ayoub NPPATHOLOGY/CYTOLOGY Final ResultPerforming OrganizationAddressCity/State/ZIP CodePhone Number [facility] [address] [place] [address], [place] from Last 3 Months or Most Recently Relevant to Health Maintenance Insurance * Guarantor: [employer] ADVANTAGEAccount TypeRelation to PatientDate of BirthPhoneBilling AddressEn[facility]/WtmrUzyxzfge75/01/2001 ATTN A/P [address] [place] [address] Care Teams Team MemberRelationshipSpecialtyStart DateEnd Date Health, Family PCP - General11/03/20
--- NOTE | 2025-06-25 11:10 | ED.GENADULT ---
HPI - General Adult General Chief complaint: Extremity Pain/Injury, Lower Stated complaint: L leg swelling Time Seen by Provider: 06/25/25 11:10 History of Present Illness HPI narrative: c/o L leg swelling and shooting pain that started last night around 2200. denies injury 55-year-old woman presenting to the emergency department with complaint of left leg swelling pain. Began last night with sensation of swelling in shooting pain and has escalated quickly prompting visit here today. Is having a good deal of pain in the left leg worse with any movement. No trauma noted. No history of DVT. Does have a history of invasive ductal carcinoma of the breast. Has had bilateral mastectomy currently taking tamoxifen. She does have a history of venous stripping. There has been some new discoloration also in her left thigh. No chest pain or shortness of breath. Receives cancer cares through [facility] this facility Related Data Home Medications ?Medication ?Instructions ?Recorded ?Confirmed veteboy-wabmkqrsprufy-lonnypye 250 1 tab PO Q6H PRN 12/21/21 05/20/25 mg-250 mg-65 mg tablet (Excedrin Migraine) melatonin 5 mg capsule 10 mg PO HS PRN 12/21/21 05/20/25 naproxen 250 mg tablet 250 mg PO DAILY PRN 12/21/21 05/20/25 multivitamin 1 tab PO QDAY 12/01/23 05/20/25 diphenhydramine 25 2 tab PO QHS PRN 06/18/24 05/20/25 mg-acetaminophen 500 mg tablet (Tylenol PM Extra Strength) Previous Rx's ?Medication ?Instructions ?Recorded calcium 600 mg (as 1 tab PO BID #120 tabs 11/29/24 carbonate)-vitamin D3 5 mcg (200 unit) tablet tamoxifen 20 mg tablet 20 mg PO QDAY #90 tabs 05/20/25 Allergies Allergy/AdvReac Type Severity Reaction Status Date / Time No Known Drug Allergies Allergy Verified 05/20/25 14:12 Review of Systems Status of ROS: Reports: 6 or more systems reviewed and unremarkable except as noted in History and below [facility] Medical History Menorrhagia with regular cycle ?N92.0 - Excessive and frequent menstruation with regular cycle (ICD-10) Surgical History History of vein stripping ?Z98.890 - Other specified postprocedural states (ICD-10) Status post tubal ligation ?Z98.51 - Tubal ligation status (ICD-10) Status post bilateral mastectomy ?Z90.13 - Acquired absence of bilateral breasts and nipples (ICD-10) Social History Narrative: Health Care Directive completed on 06/05/21. Reviewed and sent for scanning on 06/10/2021 Smoking Status: Never smoker Do you use any of these nicotine containing products: None How often do you have a drink containing alcohol: never AUDIT-C Alcohol total score: 0 Non-prescribed substance use: denies use Exam Narrative: Exam Narrative: Very pleasant. NAD. Appears worried. Breathing easily lungs appear to be clear. Heart in regular rate and rhythm. Examination of the left leg in question is definitely with generalized edema. Venous varicosities are noted as well. Not particularly inflamed. There are some dime-sized areas of purple vascularity in the inner left thigh and then a palm sized faintly erythematous slightly purple do patch with some induration on the inner left thigh. She is tender to palpation generally throughout her thigh and leg to about mid calf. The patch does not readily more. Feet are equal temperature. Appear well-perfused. Palpable dorsalis pedis pulse on the left. Const: Vital Signs, click to edit/add: Vital Signs - 24 hr 06/25/25 10:46 06/25/25 12:23 06/25/25 14:31 Temperature 97.2 F L Pulse Rate [Pulse Oximeter] 85 83 80 Respiratory Rate 16 19 18 Blood Pressure [facility]] 126/83 125/81 129/101 H Pulse Oximetry 97 97 98 Oxygen Delivery Me thod Room Air Room Air Room Air Documenting provider has reviewed patient's vital signs: yes Course Vital Signs Vital signs: Initial Vital Signs Temperature 97.2 F L 06/25/25 10:46 Temperature Source Temporal Artery Scan 06/25/25 10:46 Pulse Rate 85 06/25/25 10:46 Respiratory Rate 16 06/25/25 10:46 Blood Pressure 126/83 06/25/25 10:46 Blood Pressure Mean 97 06/25/25 10:46 Blood Pressure Position Sitting 06/25/25 10:46 Pulse Oximetry 97 06/25/25 10:46 Oxygen Delivery Method Room Air 06/25/25 10:46 Vital Signs Temperature 97.2 F L 06/25/25 10:46 Pulse Rate 85 06/25/25 10:46 Respiratory Rate 16 06/25/25 10:46 Blood Pressure 126/83 06/25/25 10:46 Pulse Oximetry 97 06/25/25 10:46 Oxygen Delivery Method Room Air 06/25/25 10:46 Temperature 97.2 F L 06/25/25 10:46 Pulse Rate 80 06/25/25 14:31 Respiratory Rate 18 06/25/25 14:31 Blood Pressure 129/101 H 06/25/25 14:31 Pulse Oximetry 98 06/25/25 14:31 Oxygen Delivery Method Room Air 06/25/25 14:31 Medications Administered Medications: Generic Name Dose Route Start Last Admin Trade Name Freq PRN Reason Stop Dose Admin Heparin Sodium/Dextrose 25,000 unit in 500 mls @ 0 mls/hr 06/25/25 13:45 06/25/25 14:18 Heparin IV 1,500 unit/hr .Q0M JUSTYN 30 mls/hr Protocol Administration Per Protocol Discontinued Medications Generic Name Dose Route Start Last Admin Trade Name Freq PRN Reason Stop Dose Admin Acetaminophen 1,000 mg 06/25/25 12:26 06/25/25 13:05 Acetaminophen 500 Mg Tablet PO 06/25/25 12:27 1,000 mg ONCE ONE Administration Heparin Sodium (Porcine) 7,000 unit 06/25/25 13:40 06/25/25 14:17 Heparin 5,000 Unit/0.5 Ml Inj 80 unit/kg (7000 unit) 06/25/25 13:41 7,000 unit IVP Administration ONCE ONE Medical Decision Making MDM Narrative Medical decision making narrative: I would anticipate that has DVT present along with possibly superficial thrombophlebitis. The skin changes may also represent pending ulceration. I do not see cellulitic change. Phlegmasia cerulea dolens? I did discuss this case with colleague who also examined. Straight away did order an ultrasound of the left lower extremity. Did discuss these findings with outside solar sales consultant notes extensive DVT up through the iliac as well as superficial thrombus. Did also speak with over reading radiologist directly. Radiology over-read below INDICATION: Leg pain and swelling. TECHNIQUE: Ultrasound venous duplex lower left extremity. Compression venous exam was performed using forte-scale, color Doppler, and spectral Doppler analysis. COMPARISON: None. FINDINGS: Deep veins: Extensive near occlusive DVTs throughout the left lower extremity from the left common iliac vein through the left common femoral vein, superficial and deep femoral veins, popliteal vein, peroneal vein, and posterior tibial vein. Superficial veins: There is also thrombus of the left common femoral/greater saphenous vein junction and in the greater saphenous vein at the proximal, mid, and distal thigh. The right greater saphenous vein is patent. No popliteal cyst. IMPRESSION: 1. Extensive near occlusive DVTs throughout the left lower extremity from the left common iliac vein through the bnweb-kzc-rofq calf veins. 2. Thrombus throughout the left greater saphenous vein. The pertinent findings were discussed with Dr. Juan David Ponce by Dr. Elliot Capps on 06/25/2025 at 12:27 p.m. POLITICAL GEOGRAPHER. Dictated by Elliot Capps MD @ 06/25/2025 12:29:02 PM Since receives care at [facility], I did call there to attempt to talk to somebody with vascular for further recommendations. Apparent they report has not been seen in the last couple of years at least in [place] furthermore did not consider oncologist to be [facility] affiliated and would not allow for [facility] consult. Anticipated difficult interaction, concurrently placed a call to [facility] and managed to speak to vascular. Described findings in ultrasound study. Suspects that might need or benefit from IR intervention or certainly at higher risk for complications. Requested acetaminophen for pain. Given. Heparinizing per DVT protocol. Information about this case was related to patient's oncologist. Have spoken with hospitalist at [facility] and has been accepted in transfer of care pending bed availability. Pain has settled with intermittent shocks. Anticipating handoff a change of shift. Medical Records Medical records reviewed: Yes I reviewed the patient's medical records Lab Data Lab results reviewed: Yes I reviewed the patient's lab results Labs: Lab Results 06/25/25 Range/Units 14:12 WBC 10.39 (4.50-11.00) K/uL RBC 4.80 (4.00-5.20) m/uL Hgb 14.7 (12.0-16.0) gm/dL Hct 45.1 (33.0-51.0) % MCV 94 (80-100) fL MCH 31 (26-34) pg MCHC 33 (32-36) gm/dL Plt Count 101 L (140-440) K/uL INR 1.13 H (0.91-1.10) APTT 39 H (23-33) Seconds Sodium 138 (135-149) mmol/L Potassium 4.2 (3.6-5.1) mmol/L Chloride 104 (96-114) mmol/L Carbon Dioxide 24 (20-32) mmol/L Anion Gap 10 (7-15) mEq/L BUN 14 (7-30) mg/dL Creatinine 0.7 (0.5-1.5) mg/dL Estimated Creat Clear 85.01 Estimated GFR 102 ml/min Glucose 121 H (60-115) mg/dL Calcium 9.7 (8.4-10.6) mg/dL Discharge Plan Discharge Clinical Impression: DVT of leg (deep venous thrombosis), Superficial thrombosis of leg Prescriptions: No Action multivitamin Tablet 1 tab PO QDAY diphenhydramine-acetaminophen [Tylenol PM Extra Strength] 25-500 mg tablet 2 tab PO QHS PRN calcium carbonate-vitamin D3 600 mg-5 mcg (200 unit) tablet 1 tab PO BID Qty: 120 3RF tamoxifen 20 mg tablet 20 mg PO QDAY Qty: 90 1RF Excedrin Migraine 250-250-65 mg tablet 1 tab PO Q6H PRN melatonin 5 mg capsule 10 mg PO HS PRN naproxen 250 mg tablet 250 mg PO DAILY PRN Rx Instructions: 220mg as needed Follow Up/Referrals: Provider,Not a Local [Primary Care Provider, Family Practice]
--- NOTE | 2025-06-25 11:27 | CRLHL7_ITS ---
For Patients: As a result of the Century Cures Act, medical imaging exams and procedure reports are released immediately into your electronic medical record. You may view this report before your referring provider. If you have questions, please contact your health care provider. INDICATION: Leg pain and swelling. TECHNIQUE: Ultrasound venous duplex lower left extremity. Compression venous exam was performed using forte-scale, color Doppler, and spectral Doppler analysis. COMPARISON: None. FINDINGS: Deep veins: Extensive near occlusive DVTs throughout the left lower extremity from the left common iliac vein through the left common femoral vein, superficial and deep femoral veins, popliteal vein, peroneal vein, and posterior tibial vein. Superficial veins: There is also thrombus of the left common femoral/greater saphenous vein junction and in the greater saphenous vein at the proximal, mid, and distal thigh. The right greater saphenous vein is patent. No popliteal cyst. IMPRESSION: 1. Extensive near occlusive DVTs throughout the left lower extremity from the left common iliac vein through the pcgfe-xws-kgsx calf veins. 2. Thrombus throughout the left greater saphenous vein. The pertinent findings were discussed with Dr. Juan David Ponce by Dr. Elliot Capps on 06/25/2025 at 12:27 p.m. AEROBICS TEACHER. Dictated by Elliot Capps MD @ 06/25/2025 12:29:02 PM (Electronically Signed)
--- OUTSIDE RECORDS SUMMARY | 2025-06-25 12:03 | XMS_ITS | CCD ---
Author Name Interface, [id number] lity Address [address] [place] [address] [address] [address] [facility] Address [address] [facility] [address] [address] Support Name Relationship Address Phone Jon Jensen Child Unknown Unavailable Camila Eliot Child Unknown Unavailable Dora Al Other adult Unknown Unavailable Allergies and Adverse Reactions Medication/Group Name Reaction Severity Date No known allergies Reason for Visit RECONSULT 30 MIN Medications Date Name Route Dose Frequency Instructions Start Date End Date Status Fill Status Indication 03/03/2021 Multivitamins Oral Tablet mvkuvv7506/03/2021Melatonin Ggqwyekndc32/30/2023Oxybutynin Iwtpuyctui83/07/2021 Prochlorperazine Geqggscbfdh08/07/2021Naproxen Sodium Wzzxhhiqyu88/15/2021 Sennosides Stmhlwqbyxt61/10/2021Tamoxifen Xtlryltzqoan55/07/2021spirin Oral klidmf8107/26/2022alcium Carbonate Pxvzhehhnw62/30/2023nastrozole Oralactive 03/03/2021orazepam Pzdgmwdwuuh65/15/2021Oxycodone Oralstopped Problems Diagnosis Status Date of Diagnosis Resolution Date Encounter for other plastic and reconstructive surgery following medical procedure or healed injury Active MacromastiaActiveBreast cancer, femaleActiveHistory of mastectomy (situation) ActiveDeformity of reconstructed breast (disorder)Active Social History Date Name Value 03/03/2021 Sex Female
--- OUTSIDE RECORDS SUMMARY | 2025-06-25 12:03 | XMS_ITS | CCD ---
Author Name Interface, [id number] lity Address [address] [place] [address] [address] [address] [facility] Address [address] [facility] [address] [address] Support Name Relationship Address Phone Jon Jensen Child Unknown Unavailable Camila Eliot Child Unknown Unavailable Dora Al Other adult Unknown Unavailable Allergies and Adverse Reactions Medication/Group Name Reaction Severity Date No known allergies Reason for Visit RECONSULT 30 MIN Medications Date Name Route Dose Frequency Instructions Start Date End Date Status Fill Status Indication 03/03/2021 Multivitamins Oral Tablet qsixuh7606/03/2021Melatonin Jyqanetuwy76/30/2023Oxybutynin Uqlrgnzhcp31/07/2021 Prochlorperazine Rjklwyhzzha05/07/2021Naproxen Sodium Vtgmferlde17/15/2021 Sennosides Aoxadrshmui42/10/2021Tamoxifen Ugrawqevgwki96/07/2021spirin Oral nqmopn5607/26/2022alcium Carbonate Cgvxrvprzt50/30/2023nastrozole Oralactive 03/03/2021orazepam Asnnsesbfvr48/15/2021Oxycodone Oralstopped Problems Diagnosis Status Date of Diagnosis Resolution Date Encounter for other plastic and reconstructive surgery following medical procedure or healed injury Active MacromastiaActiveBreast cancer, femaleActiveHistory of mastectomy (situation) ActiveDeformity of reconstructed breast (disorder)Active Social History Date Name Value 03/03/2021 Sex Female
[2025-06-25 12:23] VITALS: BP 125/81; PULSE 83; RESP 19; O2SAT 97
[2025-06-25] MEDS: ACETAMINOPHEN 500 MG TABLET 1000 MG PO (13:05)
[2025-06-25] MEDS: HEPARIN 5,000 UNIT/0.5 ML INJ 7000 UNIT IVP (14:17)
[2025-06-25] MEDS: HEPARIN 25,000 UNIT/500 ML BAG 30 UNIT IV (14:18)
[2025-06-25 14:23] LABS: Hematocrit* 45.1 % (33.0-51.0); Hemoglobin* 14.7 gm/dL (12.0-16.0); Mean Corpuscular HGB Conc 33 gm/dL (32-36); Mean Corpuscular Hemoglobin 31 pg (26-34); Mean Corpuscular Volume 94 fL (80-100); Red Blood Count* 4.80 m/uL (4.00-5.20); White Blood Count* 10.39 K/uL (4.50-11.00)
[2025-06-25 14:25] LABS: Slide Review Reflex No
[2025-06-25 14:30] LABS: Chloride* 104 mmol/L (96-114); Sodium* 138 mmol/L (135-149)
[2025-06-25 14:31] VITALS: BP 129/101; PULSE 80; RESP 18; O2SAT 98
[2025-06-25 14:31] LABS: Potassium* 4.2 mmol/L (3.6-5.1)
[2025-06-25 14:33] LABS: Blood Urea Nitrogen* 14 mg/dL (7-30); Creatinine* 0.7 mg/dL (0.5-1.5); Est. Creatinine Clearance* 85.01; Estimated Glomerular Filt Rate 102 ml/min
[2025-06-25 14:34] LABS: Anion Gap 10 mEq/L (7-15); Calcium* 9.7 mg/dL (8.4-10.6); Carbon Dioxide* 24 mmol/L (20-32); Glucose* 121 mg/dL (60-115)
[2025-06-25 14:52] LABS: INR 1.13 (0.91-1.10); Prothrombin Time 15.4 Seconds
[2025-06-25 16:38] VITALS: BP 125/84; PULSE 81; RESP 18; O2SAT 97
== END 2025-06-25 17:47 | disposition short-term general hospital (02) ==
LOC: ED 11:42
PROVIDERS: Emergency Provider Family Medicine
DX: I82.422 Acute embolism and thrombosis of left iliac vein (principal); I82.412 Acute embolism and thrombosis of left femoral vein; I82.432 Acute embolism and thrombosis of left popliteal vein; I82.452 Acute embolism and thrombosis of left peroneal vein; I82.442 Acute embolism and thrombosis of left tibial vein; Z90.13 Acquired absence of bilateral breasts and nipples; Z85.3 Personal history of malignant neoplasm of breast
CPT/HCPCS: 36415; 80048; 85027; 85610; 85730; 93971; 96374; 99284; 99285; A9270; J1644

== ENCOUNTER 2025-06-25 17:35 | Outpatient (CLI) | payer BC, SELFPAY | END 2025-06-25 17:36 | disposition home or self-care (01) | LOC: AMB 07-01 13:50 | PROVIDERS: Visit Provider Emergency Medicine | DX: I82.402 Acute embolism and thrombosis of unspecified deep veins of left lower extremity (principal) | CPT/HCPCS: A0425; A0434 ==